=== PATIENT | male | born 1940 | race Asian ===

== ENCOUNTER 2023-06-10 19:55 | Emergency (ER) | payer OTHER ==
[2023-06-10 20:13] VITALS: BP 159/85; PULSE 103; RESP 20; TEMP 98.2; BMI 24.4
[2023-06-10] MEDS ORDERED: ACETAMINOPHEN 500 MG TABLET (FP) PO ONE (21:04)
[2023-06-10] MEDS ORDERED: LIDOCAINE 5% TOPICAL PATCH TP ONE (23:05)
== END 2023-06-10 23:08 | disposition home or self-care (01) ==
LOC: JER 19:55
DX: R07.89 Other chest pain (principal); R07.2 Precordial pain; V49.50XA Passenger injured in collision with unspecified motor vehicles in traffic accident, initial encounter; Y93.I9 Activity, other involving external motion; Y92.481 Parking lot as the place of occurrence of the external cause
CPT/HCPCS: 71120-TC-FY; 93005; 93010; 99284-25